=== PATIENT | female | born 1955 | race Caucasian/White ===

== ENCOUNTER → 2017-02-15 | Day surgery (SDC) | payer MEDICARE, BC ==
[~2017-02-15] VITALS: Ht 162.6 cm; Wt 84.3 kg
[~2017-02-15] MED LIST: ALEVE220 MG PO; DESYREL100 MG PO; FLAX SEED OIL1 EACH PO; LAMICTAL200 MG PO; MIRALAX17 GM PO; OLANZAPINE15 MG PO
--- NOTE | ~2017-02-15 | OR ---
PATIENT'S NAME: SABINA BELLO [facility] AGE: 62 Y [address] ROOM: [place] [id number] [place] [facility] [place]: 02/15/2017 OR/Procedure Report DISCHARGE DATE: FAMILY PHYSICIAN: Debbie Dobson APRN ATTENDING PHYSICIAN: Charity Beasley SURGEON: Heather Redmond CRNA [employer] MANAGER: DATE OF PROCEDURE: 02/15/2017 EPIDURAL STEROID INJECTION. The patient of Dr. Beasley. 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 POSTOPERATIVE DIAGNOSIS: Low back pain, L3-4, 4-5 stenosis. DESCRIPTION OF PROCEDURE: The patient was placed in a sitting position and the back was prepped and draped in a sterile fashion using Betadine solution. A 1% Lidocaine was infiltrated into the skin and subcutaneous tissue in the area of the epidural puncture. An #18 gauge epidural needle was advanced into the epidural space using the loss of resistance technique and preservative- free normal saline. No blood, CSF, or prolonged paresthesias were noted. Depo-Medrol 120 mL in 4 mL of preservative-free normal saline was injected at the level of L3-4, no other levels were attempted. The patient was placed on her back for a 30 minute period and observed for signs of numbness, weakness, sympathectomy, or headache. The patient was informed that any of these symptoms would be abnormal and to notify the Anesthesia Department should they occur. The patient tolerated the procedure very well. HEATHER REDMOND CRNA DMS/modl /[id number] d: 02/15/17 2324 t: 02/19/17 0733, OPERATIVE SUMMARY
== END | disposition disaster alternative care site (69) ==
LOC: GSDC 15:49 → GPOC 16:00
PROC: 3E0R3BZ Introduction of Anesthetic Agent into Spinal Canal, Percutaneous Approach (ICD-10-PCS; principal; 2017-02-15)
PROC: 3E0R33Z Introduction of Anti-inflammatory into Spinal Canal, Percutaneous Approach (ICD-10-PCS; 2017-02-15)
DX: M54.5 Low back pain (principal); M48.06 Spinal stenosis, lumbar region; M51.16 Intervertebral disc disorders with radiculopathy, lumbar region
CPT/HCPCS: J1030; J1040